=== PATIENT | female | born 1995 | race Caucasian/White ===

== ENCOUNTER → 2019-06-08 | Outpatient (CLI) | payer MEDICAID, OTHER ==
[~2019-06-08] MED LIST: Benzocaine 60 ML TP; DOCO200C PO; DOCU240C67 PO; IBUP800T37 PO; LORA-763 PO; Lanolin TP; TUCKS TP
--- NOTE | 2019-06-09 09:06 | RADIOLOGY IMAGING REPORT ---
FACILITY: [facility] PATIENT NAME: KHARI KUO : [id number] MR: [id number] V: [id number] EXAM DATE: [id number] ORDERING PHYSICIAN: JODI STANLEY TECHNOLOGIST: Vania Barth RDMS(ABD,OBGYN,BR),RVT PROCEDURE:US RIGHT BREAST COMPLETE COMPARISON:None. INDICATIONS:Palpable lump Right breast 11-12 o'clock position. AREAS SCANNED: 9-12 o'clock position of the Right breast. FINDINGS: There is a cluster of tiny cysts in the 11 o'clock position of the Right breast collectively measuring approximately 4.6 x 2 x 5.3cm and likely accounts for patient's palpable findings. DIAGNOSTIC CATEGORY 2--BENIGN FINDING. RECOMMENDATIONS: CLINICAL EVALUATION. IMPRESSION: BIRADS 2: Benign finding. There is a cluster of cysts in the 11 o'clock position of the Right breast likely accounting for patient's palpable findings. Dictated by: Apolonia Cabrales M.D. on 06/08/2019 at 15:21 Transcribed by: [email or web address] on 06/09/2019 at 7:46 Approved by: Apolonia Cabrales M.D. on 06/09/2019 at 9:01 [facility]
== END ==
LOC: US 02:23
PROVIDERS: ATTEND Obstetrics & Gynecology
DX: N63.11 Unspecified lump in the right breast, upper outer quadrant (principal)